=== PATIENT | female | born 1935 | race Caucasian/White ===

== ENCOUNTER → 2018-09-21 11:00 | Emergency (ER) | payer MEDICARE, BC, OTHER ==
--- NOTE | 2018-09-21 11:37 | ED ---
Skin Complaint - HPI Summary HPI Summary: Patient is an 83-year-old female who presents emergency department for redness and swelling to the right inner thigh 2 days. Patient states she believes she was bitten by an insect on when she was at an outside retreat. Pt. states that area progressively become more painful and red. Denies fever or chills. No significant past medical history. Sxs are mild in severity. Touching area makes sxs worse. Rest makes sxs better. - History of Current Complaint Chief Complaint: EDAnimalBite Time Seen by Provider: 09/21/18 11:17 Stated Complaint: POSS INSECT BITE PER PT Hx Obtained From: Patient Pain Intensity: 2 - Allergy/Home Medications Allergies/Adverse Reactions: Allergies Allergy/AdvReac Type Severity Reaction Status Date / Time YOLANDA Inhibitors Allergy Vomiting Verified 09/21/18 11:10 amoxicillin [From Augmentin] Allergy Vomiting Verified 09/21/18 11:10 clavulanic acid Allergy Vomiting Verified 09/21/18 11:10 [From Augmentin] PMH/Surg Hx/FS Hx/Imm Hx Previously Healthy: Yes Endocrine/Hematology History: Denies: Hx Diabetes Cardiovascular History: Reports: Hx Hypertension Denies: Hx Angina, Hx Coronary Artery Disease, Hx Hypercholesterolemia, Hx Myocardial Infarction, Hx Valvular Heart Disease Respiratory History: Reports: Hx Asthma Denies: Hx Chronic Obstructive Pulmonary Disease (COPD) - Cancer History Hx Chemotherapy: No Hx Radiation Therapy: No Infectious Disease History: No Infectious Disease History: Denies: Traveled Outside the [place] in Last 30 Days - Family History Known Family History: Positive: Non-Contributory - Social History Occupation: Retired Lives: Alone Alcohol Use: Occasionally Substance Use Type: Reports: None Smoking Status (MU): Former Smoker Type: Cigarettes Amount Used/How Often: 5-6 CIGARETTES A DAY Length of Time of Smoking/Using Tobacco: 2 Have You Smoked in the Last Year: No Review of Systems Constitutional: Negative Negative: Fever, Chills Gastrointestinal: Negative Negative: Vomiting, Nausea Positive: Other - redness right inner thigh All Other Systems Reviewed And Are Negative: Yes Physical Exam Triage Information Reviewed: Yes Vital Signs On Initial Exam: Initial Vitals Temp Pulse Resp BP Pulse Ox 98.2 F 86 16 126/67 93 09/21/18 11:04 09/21/18 11:04 09/21/18 11:04 09/21/18 11:04 09/21/18 11:04 Vital Signs Reviewed: Yes Appearance: Positive: Well-Appearing - Pt. sitting on bed in NAD. Pleasant. Skin: Positive: Warm, Dry, Other - Noted to right proximal medially leg there is a roughly 5cm in diameter annular area with a darker red center. Center is indurated. No drainage. Slightly tender to touch. Head/Face: Positive: Normal Head/Face Inspection Eyes: Positive: Normal, EOMI Neck: Positive: Supple Neurological: Positive: Normal, CN Intact II-III Psychiatric: Positive: Affect/Mood Appropriate Diagnostics - Vital Signs Vital Signs Temp Pulse Resp BP Pulse Ox 09/21/18 11:04 98.2 F 86 16 126/67 93 - Laboratory Lab Statement: Any lab studies that have been ordered have been reviewed, and results considered in the medical decision making process. Course/Dx - Course Course Of Treatment: Pt. presenting for likely mild cellulitis secondary to an insect bite. Will start on doxycycline. Advised warm compresses. Wound check with PCP in 2-3 days. To return to ER for increased redness, swelling, fever, or if concerned. Pt. understands and agrees with plan. - Differential Diagnoses - Skin Complaint Differential Diagnoses: Abscess, Cellulitis, Contact Dermatitis, Eczema, MRSA - Diagnoses Provider Diagnoses: Cellulitis, Insect bite Discharge - Sign-Out/Discharge Documenting (check all that apply): Patient Departure Patient Received Moderate/Deep Sedation with Procedure: No - Discharge Plan Condition: Good Disposition: HOME Prescriptions: DOXYcycline CAP(*) [DOXYcycline 100MG CAP(*)] 100 mg PO BID #20 cap Patient Education Materials: Cellulitis (ED), Insect Bite or Sting (ED) Referrals: Kaley Luevano [Primary Care Provider] - Additional Instructions: Follow up with PCP for a wound check in 2-3 days Take antibiotic as directed Apply warm compresses Return to ER for increased redness, swelling, fever, vomiting, or if concerned - Billing Disposition and Condition Condition: GOOD Disposition: Home
[2018-09-21 11:50] VITALS: BP 122/67
== END | disposition home or self-care (01) ==
LOC: ED 11:00
DX: S70.361A Insect bite (nonvenomous), right thigh, initial encounter (principal); L03.115 Cellulitis of right lower limb; W57.XXXA Bitten or stung by nonvenomous insect and other nonvenomous arthropods, initial encounter; Y92.9 Unspecified place or not applicable; I10 Essential (primary) hypertension; Z88.1 Allergy status to other antibiotic agents; Z88.0 Allergy status to penicillin; Z88.8 Allergy status to other drugs, medicaments and biological substances; Z87.891 Personal history of nicotine dependence
CPT/HCPCS: 99282